=== PATIENT | female | born 1935 | race Caucasian/White ===

== ENCOUNTER 2016-12-28 09:01 | Day surgery (SDC) | payer BC ==
--- NOTE | ~2016-12-28 | EGD ---
EGD REPORT [facility] [address] [id number] NAME: JENNIFER THAPA : 37 STATUS : REG [facility]#: [id number] AGE: 81 ADM/REG DATE : 12/28/16 MR#: [id number] REPORT SERV DATE: 12/28/16 DICTATED BY: SAMM DAWKINS DATE: 12/28/16 REPORT STATUS : Draft [facility] DATE: 12/28/16 Endoscopy Center Patient Name: Jennifer Thapa Date of : 1935 Attending MD: SAMM DAWKINS MD Procedure Date No Time: 12/28/2016 Procedure: Upper GI endoscopy Indications: Iron deficiency anemia, Gastro-esophageal reflux disease, Heme positive stool, Nausea with vomiting, Weight loss Referring MD: MARIAMA LAW Medicines: Propofol per Anesthesia Complications: No immediate complications. Procedure: Pre-Anesthesia Assessment: - ASA Grade Assessment: III - A patient with severe systemic disease. After obtaining informed consent, the endoscope was passed under direct vision. Throughout the procedure, the patient's blood pressure, pulse, and oxygen saturations were monitored continuously. The GIF [id number] was introduced through the mouth, and advanced to the third part of duodenum. The upper GI endoscopy was accomplished without difficulty. The patient tolerated the procedure well. Findings: The examined esophagus was normal. A small hiatus hernia was present. as seen on retroflexion Diffuse mild inflammation characterized by congestion (edema) and erythema was found in the entire examined stomach. A single small angioectasia with bleeding was found in the gastric body. Coagulation for hemostasis using argon plasma was successful. A single 3 mm sessile polyp with no bleeding and no stigmata of recent bleeding was found in the gastric body. The polyp was removed with a cold biopsy forceps. Resection and retrieval were complete. Coagulation for hemostasis of bleeding caused by the procedure using argon plasma was successful. The examined duodenum was normal. A single small angioectasia with bleeding was found in the duodenal bulb. Coagulation for hemostasis using argon plasma was successful. Impression: - Normal esophagus. - Hiatus hernia. - Gastritis. - A single bleeding angioectasia in the stomach. Treated EGD REPORT [address] [place]. [address] NAME: JENNIFER THAPA : 37 STATUS : REG [facility] PAT#: [id number] AGE: 81 ADM/REG DATE : 12/28/16 MR#: [id number] REPORT SERV DATE: 12/28/16 DICTATED BY: SAMM DAWKINS DATE: 12/28/16 REPORT STATUS : Draft TRANSCRIBED BY: [employer] DATE: 12/28/16 with thermal therapy. - A single gastric polyp. Resected and retrieved. Treated with thermal therapy. - Normal examined duodenum. - A single bleeding angioectasia in the duodenum. Treated with thermal therapy. Recommendation: - Patient has a contact number available for emergencies. The signs and symptoms of potential delayed complications were discussed with the patient. Return to normal activities tomorrow. Written discharge instructions were provided to the patient. - Return to previous diet. - Check hemoglobin weekly. - Continue present medications. - Await pathology results. - Return to my office as previously scheduled. - Discharge patient to home. Procedure Code(s): --- Professional --- 36061, 59, Esophagogastroduodenoscopy, flexible, transoral; with control of bleeding, any method 24360, Esophagogastroduodenoscopy, flexible, transoral; with biopsy, single or multiple Diagnosis Code(s): --- Professional --- K44.9, Diaphragmatic hernia without obstruction or gangrene K29.70, Gastritis, unspecified, without bleeding K31.811, Angiodysplasia of stomach and duodenum with bleeding K31.7, Polyp of stomach and duodenum D50.9, Iron deficiency anemia, unspecified K21.9, Gastro-esophageal reflux disease without esophagitis R19.5, Other fecal abnormalities R11.2, Nausea with vomiting, unspecified R63.4, Abnormal weight loss CPT copyright 2013 [employer]. All rights reserved. The codes documented in this report are preliminary and upon agricultural lender review may be revised to meet current compliance requirements. Samm Dawkins MD EGD REPORT [facility] [address] [place] [id number] NAME: JENNIFER THAPA : 37 STATUS : REG [facility] PAT#: [id number] AGE: 81 ADM/REG DATE : 12/28/16 MR#: [id number] REPORT SERV DATE: 12/28/16 DICTATED BY: SAMM DAWKINS DATE: 12/28/16 REPORT STATUS : Draft TRANSCRIBED BY: [employer] DATE: 12/28/16 SAMM DAWKINS MD 12/28/2016 12:50 PM This report has been signed electronically. Number of Addenda: 0 Note Initiated On: 12/28/2016 11:39 AM Scope Withdrawal Time 0 hours 0 minutes 0 seconds [address] [place] [id number]
[~2016-12-28 09:01] MED LIST: ASAB PO; CARTIA XT240 MG/24 PO; DIABETA5 PO; FABRAZYME; GLUCPH PO; HEMOCYTE324 MG PO; JANUVIA50 PO; L20 PO; MICRO-K10 MEQ PO; PRADAXA150 MG PO; PRAVAC PO; PROTONIX PO; RYTHMOL150 MG PO; SAXAGLIPTIN PO; SUCR PO; TRANXENE 7.5 M7.5 MG OR; VITAMIN B-121000 MC1 SL; XYZAL5 MG PO; ZESTRIL30 MG PO
== END 2016-12-28 23:59 | disposition home health service (06) ==
LOC: DMU 09:01
PROVIDERS: Internal Medicine Gastroenterology
PROC: 0DB68ZX Excision of Stomach, Via Natural or Artificial Opening Endoscopic, Diagnostic (ICD-10-PCS; principal; 2016-12-28 11:00)
PROC: 0W3P8ZZ Control Bleeding in Gastrointestinal Tract, Via Natural or Artificial Opening Endoscopic (ICD-10-PCS; 2016-12-28 11:00)
DX: K44.9 Diaphragmatic hernia without obstruction or gangrene (principal); I10 Essential (primary) hypertension; I48.91 Unspecified atrial fibrillation; E11.9 Type 2 diabetes mellitus without complications; F41.9 Anxiety disorder, unspecified; K31.811 Angiodysplasia of stomach and duodenum with bleeding; D50.9 Iron deficiency anemia, unspecified; M19.90 Unspecified osteoarthritis, unspecified site; K21.9 Gastro-esophageal reflux disease without esophagitis; Z88.0 Allergy status to penicillin; Z87.442 Personal history of urinary calculi; Z79.82 Long term (current) use of aspirin; Z79.899 Other long term (current) drug therapy; Z87.891 Personal history of nicotine dependence; Z98.890 Other specified postprocedural states
CPT/HCPCS: 82962; 88305